=== PATIENT | female | born 2005 | race Caucasian/White ===

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

== ENCOUNTER → 2024-06-11 | Outpatient (CLI) | payer OTHER | LOC: LAB SHORT 15:35 → LAB 15:35 | DX: R82.90 Unspecified abnormal findings in urine (principal) | CPT/HCPCS: 87086 ==

== ENCOUNTER 2024-08-12 23:51 | Emergency (ER) | payer OTHER ==
[~2024-08-12] VITALS: Ht 160 cm; Wt 68.0 kg
[2024-08-12 23:56] VITALS: BP 138/81
== END 2024-08-13 00:54 | disposition home or self-care (01) ==
LOC: ER 23:51
DX: S13.4XXA Sprain of ligaments of cervical spine, initial encounter (principal); F17.290 Nicotine dependence, other tobacco product, uncomplicated; V89.2XXA Person injured in unspecified motor-vehicle accident, traffic, initial encounter

== ENCOUNTER → 2024-09-03 | Outpatient (CLI) | payer OTHER ==
[~2024-09-03] MED LIST changes: +CYCL10 PO; +FAMO20 PO; +IBUP600 PO
[2024-09-04 12:01] LABS: Candida Group, PCR NOT DETECTED (NOT DETECT)
[2024-09-04 12:03] LABS: Bacterial Vaginosis PCR Positive (NEGATIVE); Candida glabrata-krusei, PCR DETECTED (NOT DETECT)
== END ==
LOC: LAB SHORT 17:02 → LAB 17:02
PROVIDERS: Physician Assistant
DX: R10.2 Pelvic and perineal pain (principal); R30.0 Dysuria
CPT/HCPCS: 81515; 87086

== ENCOUNTER → 2024-11-03 | Outpatient (CLI) | payer OTHER ==
[2024-11-03 19:11] LABS: Candida Group, PCR NOT DETECTED (NOT DETECT)
[2024-11-03 19:28] LABS: Bacterial Vaginosis PCR Positive (NEGATIVE); Candida glabrata-krusei, PCR DETECTED (NOT DETECT)
== END ==
LOC: LAB 16:05 → LAB SHORT 16:05
PROVIDERS: Physician Assistant
DX: N89.8 Other specified noninflammatory disorders of vagina (principal)
CPT/HCPCS: 81515

== ENCOUNTER → 2024-12-26 | Outpatient (CLI) | payer OTHER ==
[2024-12-26 19:03] LABS: Candida Group, PCR NOT DETECTED (NOT DETECT); Candida glabrata-krusei, PCR NOT DETECTED (NOT DETECT)
[2024-12-26 19:43] LABS: Bacterial Vaginosis PCR Positive (NEGATIVE)
== END ==
LOC: LAB SHORT 15:28 → LAB 15:28
PROVIDERS: Obstetrics & Gynecology
DX: N76.0 Acute vaginitis (principal)
CPT/HCPCS: 81515

== ENCOUNTER 2025-02-15 02:16 | Emergency (ER) | payer OTHER ==
[~2025-02-15] VITALS: Ht 160 cm; Wt 65.8 kg
[2025-02-15] MEDS ORDERED: FALMINA-28 TAB1 EACH PO (02:29)
[2025-02-15] MEDS ORDERED: Ondansetron 4 MG SoluTab SL ONE (03:20)
[2025-02-15] MEDS ORDERED: Ondansetron HCl 2 MG / ML 2ML Vial IV ONE (04:15)
[2025-02-15 04:31] VITALS: BP 121/73
== END 2025-02-15 04:31 | disposition home or self-care (01) ==
LOC: ER 02:16
DX: R04.0 Epistaxis (principal); F17.290 Nicotine dependence, other tobacco product, uncomplicated; Z88.0 Allergy status to penicillin; Z79.899 Other long term (current) drug therapy
CPT/HCPCS: A9270